=== PATIENT | female | born 1985 | race Caucasian/White ===

== ENCOUNTER 2018-05-18 08:30 | Emergency (ER) | payer MEDICAID ==
[~2018-05-18] VITALS: Ht 160 cm; Wt 54.5 kg
[~2018-05-18 08:30] MED LIST: CALCIUM CITRATE1 TAB PO; CLARITIN 10 MG10 MG PO; FIBERCON625 MG PO; MOTRIN600 MG PO; PERCOCET 5/3251 TA1 PO; PRENATAL COMPLE1 TAB PO; TUMS500 MG PO
[2018-05-18 08:36] VITALS: Ht 160 cm; Wt 54.5 kg
[2018-05-18] MEDS ORDERED: ULTRAM50 MG PO (08:38)
[2018-05-18] MEDS ORDERED: CYCLOBENZAPRINE10 MG PO ×2 (08:39→09:04)
[2018-05-18] MEDS ORDERED: CELEBREX200 MG PO (08:39)
[2018-05-18] MEDS ORDERED: MULTIPLE VITAMI1 TA1 PO (08:39)
[2018-05-18] MEDS ORDERED: XANAX1 MG PO (08:40)
[2018-05-18] MEDS ORDERED: PHENERGAN25 M1 PO (08:40)
[2018-05-18 09:22] LABS: BASOPHILS 0.4 % (0-2); EOSINOPHILS 0.8 % (0-7); HEMATOCRIT 42.5 % (36.0-48.0); HEMOGLOBIN 14.6 g/dL (12-16); IMMATURE GRANULOCYTES 0.1 % (0-5); LYMPHOCYTES 21.1 % (15-50); MCHC 34.4 g/dL (31.0-37.0); MCV 95.9 fL (80.0-100.0); MONOCYTES 5.2 % (2-11); NEUTROPHILS 72.4 % (40-80); RBC 4.43 10x6/uL (4.00-5.40); RDW 12.7 % (11.5-14.5); WBC 8.2 10x3/uL (4.8-10.8)
[2018-05-18 09:30] LABS: PLATELET COUNT 354 10x3/uL (130-400)
[2018-05-18 09:34] LABS: APPEARANCE HAZY (CLEAR); BACTERIA MODERATE /hpf (NONE SEEN); BILIRUBIN NEGATIVE (NEGATIVE); COLOR YELLOW (YELLOW); EPITHELIAL CELLS 0-5 /hpf (0-5); GLUCOSE NEGATIVE (NEGATIVE); KETONE NEGATIVE (NEGATIVE); MUCUS <1+ /lpf (NONE SEEN); NITRITE NEGATIVE (NEGATIVE); PROTEIN NEGATIVE (NEGATIVE); RED CELLS - URINE 0-5 /hpf (0-5); SPECIFIC GRAVITY 1.015 (1.005-1.020); UROBILINOGEN NORMAL (NORMAL); WHITE CELLS - URINE 0-5 /hpf (0-5)
[2018-05-18 09:38] LABS: ALBUMIN 4.5 g/dL (3.4-5.0); ALKALINE PHOSPHATASE 74 U/L (46-116); ALT (SGPT) 16 U/L (10-68); BILIRUBIN - TOTAL 0.58 mg/dL (0.2-1.3); C-REACTIVE PROTEIN 0.7 mg/dL (0.0-0.9); CALC OSMOLALITY 275 mosm/kg (275-300); CALCIUM 9.7 mg/dL (8.5-10.1); CARBON DIOXIDE 26.4 mmol/L (21.0-32.0); CHLORIDE - SERUM 99 mmol/L (98-107); CREATININE - SERUM 0.9 mg/dL (0.6-1.3); GLUCOSE 152 mg/dL (74-106); PROTEIN - SERUM 8.8 g/dL (6.4-8.2); SODIUM 136 mmol/L (136-145); UREA NITROGEN 14 mg/dL (7-18); eGFR NON AFRICAN AMERICAN 76 mL/min (90-120)
[2018-05-18 10:27] VITALS: BP 120/81
== END 2018-05-18 10:27 | disposition home or self-care (01) ==
LOC: D.ER 08:30
PROVIDERS: Family Medicine
DX: M54.16 Radiculopathy, lumbar region (principal)

== ENCOUNTER → 2018-07-14 10:35 | Outpatient (CLI) | payer MEDICAID ==
[2018-05-18 08:36] VITALS: BMI 21.3
[~2018-07-14 10:35] MED LIST changes: +CELEBREX200 MG PO; +CYCLOBENZAPRINE10 MG PO; +MULTIPLE VITAMI1 TA1 PO; +PHENERGAN25 M1 PO; +ULTRAM50 MG PO; +XANAX1 MG PO
== END | disposition home or self-care (01) ==
LOC: D.MRI 10:35
DX: M54.5 Low back pain (principal)

== ENCOUNTER → 2018-11-04 16:29 | Outpatient (CLI) | payer MEDICAID ==
[2018-05-18 08:36] VITALS: BMI 21.3
== END | disposition home or self-care (01) ==
LOC: D.MRI 16:29
DX: M54.12 Radiculopathy, cervical region (principal)

== ENCOUNTER 2018-11-10 11:18 | Emergency (ER) | payer MEDICAID ==
[~2018-11-10] VITALS: Ht 160 cm; Wt 53.6 kg
[2018-11-10 11:21] VITALS: Ht 160 cm; Wt 53.6 kg
[2018-11-10 11:43] LABS: BASOPHILS 0.3 % (0-2); HEMATOCRIT 39.5 % (36.0-48.0); HEMOGLOBIN 13.6 g/dL (12-16); IMMATURE GRANULOCYTES 0.1 % (0-5); LYMPHOCYTES 31.3 % (15-50); MCH 33.5 pg (26.0-34.0); MCHC 34.4 g/dL (31.0-37.0); MCV 97.3 fL (80.0-100.0); MEAN PLATELET VOLUME 9.8 fL (7.4-10.4); MONOCYTES 4.7 % (2-11); NEUTROPHILS 62.6 % (40-80); PLATELET COUNT 309 10x3/uL (130-400); RBC 4.06 10x6/uL (4.00-5.40); RDW 13.1 % (11.5-14.5); WBC 6.8 10x3/uL (4.8-10.8)
[2018-11-10 12:04] LABS: ALKALINE PHOSPHATASE 53 U/L (46-116); ALT (SGPT) 15 U/L (10-68); BILIRUBIN - TOTAL 0.32 mg/dL (0.2-1.3); CALC OSMOLALITY 276 mosm/kg (275-300); CARBON DIOXIDE 21.2 mmol/L (21.0-32.0); CHLORIDE - SERUM 101 mmol/L (98-107); CREATININE - SERUM 0.9 mg/dL (0.6-1.3); GLUCOSE 157 mg/dL (74-106); POTASSIUM - SERUM 3.5 mmol/L (3.5-5.1); PROTEIN - SERUM 7.6 g/dL (6.4-8.2); SODIUM 137 mmol/L (136-145); UREA NITROGEN 13 mg/dL (7-18); eGFR NON AFRICAN AMERICAN 76 mL/min (90-120)
[2018-11-10 12:45] LABS: APPEARANCE HAZY (CLEAR); BILIRUBIN NEGATIVE (NEGATIVE); COLOR YELLOW (YELLOW); GLUCOSE NEGATIVE (NEGATIVE); KETONE NEGATIVE (NEGATIVE); NITRITE NEGATIVE (NEGATIVE); PROTEIN NEGATIVE (NEGATIVE); SPECIFIC GRAVITY 1.025 (1.005-1.020); UROBILINOGEN NORMAL (NORMAL)
[2018-11-10 12:46] LABS: EPITHELIAL CELLS 0-5 /hpf (0-5); RED CELLS - URINE NONE SEEN /hpf (0-5); WHITE CELLS - URINE NSEEN /hpf (0-5)
[2018-11-10] MEDS ORDERED: XANAX1 MG PO (14:25)
[2018-11-10 14:43] VITALS: BP 122/84
== END 2018-11-10 14:44 | disposition home or self-care (01) ==
LOC: D.ER 11:18
PROVIDERS: Emergency Medicine
DX: R55 Syncope and collapse (principal); G40.909 Epilepsy, unspecified, not intractable, without status epilepticus